=== PATIENT | female | born 1980 | race Caucasian/White ===

== ENCOUNTER 2017-12-21 07:25 | Inpatient (IN) | payer OTHER ==
[2017-12-21 07:41] VITALS: BMI 26.6
[2017-12-21] MEDS ORDERED: Morphine 4 mg/ml ISec IVP STA (07:55)
[2017-12-21] MEDS ORDERED: Sodium Chloride 0.9% 1,000 ML IV STA (07:55)
--- NOTE | 2017-12-21 08:12 | ED PDOC ---
Arrival/HPI - General Chief Complaint: Chest Pain Time Seen by Provider: 12/21/17 07:44 Historian: Patient - History of Present Illness Narrative History of Present Illness (Text): 12/21/17 07:44 Janki Wynne is a 37 year old female, whose past medical history includes tonsillectomy and , who presents to the emergency department complaining of chest pain that began last night and worsened this morning. Patient states that she got lightheaded on the way to work. Patient denies any fever, chills, shortness of breath, nausea, vomiting, diarrhea, urinary symptoms , back pain, neck pain, headache, dizziness, or any other complaints. Time/Duration: 4-6 hours Symptom Onset: Gradual Symptom Course: Unchanged Activities at Onset: Light Context: Home Past Medical History - Provider Review Nursing Documentation Reviewed: Yes - Psychiatric Hx Substance Use: No - Surgical History Hx Section: Yes Hx Tonsillectomy: Yes - Anesthesia Hx Anesthesia: Yes Hx Anesthesia Reactions: No Hx Malignant Hyperthermia: No Family/Social History - Physician Review Nursing Documentation Reviewed: Yes Family/Social History: No Known Family HX Smoking Status: n Hx Alcohol Use: No Hx Substance Use: No Allergies/Home Meds Allergies/Adverse Reactions: Allergies No Known Allergies Allergy (Verified 12/21/17 07:40) Home Medications: Home Meds Medication Instructions Recorded Confirmed No Known Home Med 12/21/17 12/21/17 Review of Systems - Physician Review All systems were reviewed & negative as marked: Yes - Review of Systems Constitutional: absent: Fevers, Night Sweats Eyes: absent: Vision Changes ENT: absent: Hearing Changes Respiratory: absent: SOB, Cough Cardiovascular: Chest Pain Gastrointestinal: absent: Abdominal Pain Genitourinary Female: absent: Dysuria, Frequency Musculoskeletal: absent: Arthralgias Skin: absent: Rash, Pruritis Neurological: absent: Headache, Dizziness Physical Exam Vital Signs Reviewed: Yes Vital Signs Temp Pulse Pulse Resp BP Pulse Ox 12/21/17 09:26 80 18 112/69 98 12/21/17 07:49 70 12/21/17 07:46 97.9 F 86 17 129/87 99 Temperature: Afebrile Blood Pressure: Normal Pulse: Regular Respiratory Rate: Normal Appearance: Positive for: Other (hyperventilating) Pain Distress: None Mental Status: Positive for: Alert and Oriented X 3 - Systems Exam Head: Present: Atraumatic, Normocephalic Pupils: Present: PERRL Extroacular Muscles: Present: EOMI Conjunctiva: Present: Normal Mouth: Present: Moist Mucous Membranes Neck: Present: Normal Range of Motion Respiratory/Chest: Present: Clear to Auscultation, Good Air Exchange, Other ( conversation dyspnea). No: Respiratory Distress, Accessory Muscle Use Cardiovascular: Present: Regular Rate and Rhythm, Normal S1, S2. No: Murmurs Abdomen: No: Tenderness, Distention, Peritoneal Signs Back: Present: Normal Inspection Upper Extremity: Present: Normal Inspection. No: Cyanosis, Edema Lower Extremity: Present: Normal Inspection. No: Edema Neurological: Present: GCS=15, CN II-XII Intact, Speech Normal Skin: Present: Warm, Dry, Normal Color. No: Rashes Psychiatric: Present: Alert, Oriented x 3, Normal Insight, Normal Concentration Medical Decision Making ED Course and Treatment: 12/21/17 08:14 Impression: 37 year old female complaining of chest pain since last night that worsened this morning. Plan: -- Chest X-ray -- Labs -- Morphine, Zofran, and IV fluids -- Reassess and disposition Progress Notes: EKG: Ordered, reviewed, and independently interpreted the EKG. Rate : 92 BPM Rhythm : NSR Interpretation : No ST-segment elevations or depressions, no T-wave inversions, normal intervals. Comparison : No previous EKG for comparison. 12/21/17 11:46 Reviewed radiology, Chest X-ray is normal. Chest CT unremarkable CT pulmonary angiogram. No PE. 12/21/17 12:15 Patient family asks to see me for a third time to answer questions about admission. All tests are negative but still has chest pain which patient wants me to see when she moves a certain way. Patient asks why she cant see a regional coordinator after using "[facility]." - Lab Interpretations Lab Results: 12/21/17 08:00 12/21/17 08:00 Lab Results 12/21/17 08:00: Sodium 142, Potassium 3.9, Chloride 107, Carbon Dioxide 22, Anion Gap 17, BUN 16, Creatinine 0.6 L, Est GFR ( Amer) > 60, Est GFR ( Non-Af Amer) > 60, Random Glucose 90, Calcium 8.9, Total Bilirubin 0.2, AST 29, ALT 24, Alkaline Phosphatase 60, Lactate Dehydrogenase 414, Total Creatine Kinase 77, Troponin I < 0.01, Total Protein 7.5, Albumin 4.4, Globulin 3.2, Albumin/Globulin Ratio 1.4 12/21/17 08:00: WBC 7.6, RBC 3.98, Hgb 10.3 L, Hct 32.3 L, MCV 81.2, MCH 25.9, MCHC 31.9, RDW 14.6 H, Plt Count 301, MPV 10.1, Gran % 47.8 L, Lymph % (Auto) 44.2 H, Vernon % (Auto) 4.5, Eos % (Auto) 3.0, Baso % (Auto) 0.5, Gran # 3.60, Lymph # (Auto) 3.3, Vernon # (Auto) 0.3, Eos # (Auto) 0.2, Baso # (Auto) 0.04 12/21/17 07:55: PT 13.0 H, INR 1.13 H, D-Dimer, Quantitative 224 I have reviewed the lab results: Yes - RAD Interpretation Radiology Orders: 12/21/17 07:55 CHEST PORTABLE [RAD] Stat 12/21/17 09:56 ANGIO CHEST PE PROTOCOL [CT] Stat - Medication Orders Current Medication Orders: Acetaminophen (Tylenol 325mg Tab) 650 mg PO Q6 PRN PRN Reason: TEMP>=99.5F Acetaminophen (Tylenol 650 Mg Supp) 650 mg RC Q6H PRN PRN Reason: TEMP>=99.5F Acetaminophen (Tylenol 650 Mg Supp) 650 mg RC Q6H PRN PRN Reason: Headache Acetaminophen (Tylenol 325mg Tab) 650 mg PO Q6 PRN PRN Reason: Headache Aspirin (Ecotrin) 81 mg PO DAILY [facility] Atorvastatin Calcium (Lipitor) 40 mg PO DIN [facility] Heparin Sodium (Porcine) (Heparin) 5,000 units SC Q8 AURELIO PRN Reason: Protocol Ondansetron HCl (Zofran Inj) 4 mg IVP Q4H PRN PRN Reason: Nausea/Vomiting Pantoprazole Sodium (Protonix Ec Tab) 40 mg PO 0600 AURELIO Discontinued Medications Sodium Chloride (Sodium Chloride 0.9%) 1,000 mls @ 999 mls/hr IV .Q1H1M STA Stop: 12/21/17 08:55 Last Admin: 12/21/17 08:34 Dose: 999 mls/hr eMAR Start Stop Document 12/21/17 08:34 [facility] (Rec: 12/21/17 08:35 [facility] [id number]) Intravenous Solution Start Date 12/21/17 Start Time 08:35 End Date 12/21/17 End time 09:35 Total Infusion Time 60 Ketorolac Tromethamine (Toradol) 30 mg IVP STAT STA Stop: 12/21/17 10:13 Last Admin: 12/21/17 10:19 Dose: 30 mg MAR Pain Assessment Document 12/21/17 10:19 [facility] (Rec: 12/21/17 10:20 [facility] [id number]) Pain Reassessment Is this a pain reassessment? Yes IVP Administration Document 12/21/17 10:19 [facility] (Rec: 12/21/17 10:20 [facility] [id number]) Charges for Administration # of IVP Administrations 1 Morphine Sulfate (Morphine) 4 mg IVP STAT STA Stop: 12/21/17 07:56 Last Admin: 12/21/17 08:35 Dose: Not Given Non-Admin Reason: Patient Refused Ondansetron HCl (Zofran Inj) 4 mg IVP STAT STA Stop: 12/21/17 07:56 Last Admin: 12/21/17 08:35 Dose: Not Given Non-Admin Reason: Patient Refused - Scribe Statement The provider has reviewed the documentation as recorded by the [address] Provider Scribe Attestation: All medical record entries made by the Scribe were at my direction and personally dictated by me. I have reviewed the chart and agree that the record accurately reflects my personal performance of the history, physical exam, medical decision making, and the department course for this patient. I have also personally directed, reviewed, and agree with the discharge instructions and disposition. Disposition/Present on Arrival - Present on Arrival Any Indicators Present on Arrival: No History of DVT/PE: No History of Uncontrolled Diabetes: No Urinary Catheter: No History of Decub. Ulcer: No History Surgical Site Infection Following: None - Disposition Have Diagnosis and Disposition been Completed?: Yes Diagnosis: Atypical chest pain Disposition: HOSPITALIZED Disposition Time: 12:25 Patient Plan: Admission, Discharge, Telemetry Patient Problems: Current Active Problems Problem Status Onset Atypical chest pain Acute Condition: GOOD Discharge Instructions (ExitCare): Chest Pain (ED) Forms: [facility] (Greek)
[2017-12-21 08:24] LABS: BASO # 0.04 K/mm3 (0.0-2.0); BASO % 0.5 % (0.0-3.0); EOS # 0.2 (0.0-0.7); GRAN # 3.6 (1.4-6.5); GRAN % 47.8 % (50.0-68.0); HEMOGLOBIN 10.3 g/dL (12.0-16.0); LYMPH # 3.3 (1.2-3.4); LYMPH % 44.2 % (22.0-35.0); MEAN CELL VOLUME 81.2 fl (80.0-105.0); MEAN CORPUSCULAR HEMOGLOBIN 25.9 pg (25.0-35.0); MEAN CORPUSCULAR HGB CONC 31.9 g/dl (31.0-37.0); MEAN PLATELET VOLUME 10.1 fl (7.0-11.0); MONO # 0.3 (0.1-0.6); MONO % 4.5 % (1.0-6.0); RBC 3.98 10^6/uL (3.5-6.1); RED CELL DISTRIBUTION WIDTH 14.6 % (11.5-14.5); WHITE BLOOD COUNT 7.6 10^3/ul (4.5-11.0)
[2017-12-21 08:27] LABS: ALB/GLOB RATIO 1.4 (1.1-1.8); ALBUMIN 4.4 g/dL (3.0-4.8); ALT/SGPT 24 U/L (7-56); AST/SGOT 29 U/L (14-36); BLOOD UREA NITROGEN 16 mg/dL (7-21); CALCIUM 8.9 mg/dL (8.4-10.5); GFR AFRICAN-AMERICAN > 60; GFR NON-AFRICAN AMERICAN > 60
[2017-12-21 08:38] LABS: TROPONIN I < 0.01 ng/mL
[2017-12-21 09:02] LABS: INR 1.13 (0.93-1.08)
--- NOTE | 2017-12-21 09:28 | RAD ---
HISTORY: chest pain COMPARISON: No prior. FINDINGS: LUNGS: No active pulmonary disease. PLEURA: No significant pleural effusion identified, no pneumothorax apparent. CARDIOVASCULAR: Normal. OSSEOUS STRUCTURES: No significant abnormalities. VISUALIZED UPPER ABDOMEN: Normal. OTHER FINDINGS: None. IMPRESSION: No active disease.
[2017-12-21] MEDS ORDERED: Iohexol 350 MG/100 ML VIAL ONE (10:05)
--- NOTE | 2017-12-21 11:22 | CT ---
PROCEDURE: CT Chest with contrast (Pulmonary Angiogram) HISTORY: Possible PE COMPARISON: None available. TECHNIQUE: Axial computed tomography images were obtained of the chest in the pulmonary arterial phase of enhancement. Coronal and sagittal reformatted images were created and reviewed. Intravenous contrast dose: Radiation dose: Total exam DLP = mGy-cm. This CT exam was performed using one or more of the following dose reduction techniques: Automated exposure control, adjustment of the mA and/or kV according to patient size, and/or use of iterative reconstruction technique. FINDINGS: PULMONARY ARTERIES: Unremarkable. No pulmonary embolism. AORTA: No acute findings. No thoracic aortic aneurysm. LUNGS: Unremarkable. No nodule, mass or pulmonary consolidation. PLEURAL SPACES: Unremarkable. No effusion or pneuomothorax. HEART: Unremarkable. No cardiomegaly. No significant pericardial effusion. LYMPH NODES: No lymphadenopathy. BONES, CHEST WALL: Unremarkable. No fracture or destructive lesion OTHER FINDINGS: Unremarkable. IMPRESSION: Unremarkable CT pulmonary angiogram. No pulmonary embolus.
[2017-12-21 12:41] LABS: HDL CHOLESTEROL 47 mg/dL (29-60)
[2017-12-21 12:52] LABS: LDL CHOLESTEROL 100 mg/dL (0-129)
[2017-12-21 12:57] LABS: FREE T4 0.93 ng/dL (0.78-2.19); T4 7.1 ug/dL (5.5-11.0)
[2017-12-21] MEDS ORDERED: Pantoprazole 40 mg EC Tab PO STA (14:05)
--- NOTE | 2017-12-21 14:41 | CP.PCM.HP ---
<Sergio Higgins - Last Filed: 12/21/17 14:45> History of Present Illness - History of Present Illness History of Present Illness: H&P Note for Dr. Antonio's service - Nelson Higgins PGY2 cc: chest pain HPI: Patient is a 37yo female with no significant past medical history that presents c/o substernal chest pain that started yesterday night. She reports that the pain had woken her from her sleep however she attributed it to musculoskeletal pain and returned to bed. In the morning, she continued to experience this chest pain which she described as pressure-like in sensation, 8/ 10 in severity and non-radiating. She reported that prior to this she was in her usual state of health and never experienced anything like this in the past. 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 She denied palpitations, SOB, abdominal pain, nausea, vomiting, fever, chills, cough, focal weakness. 12point ROS as per HPI above PMH: as stated above PSH: , tonsillectomy Allergies: NKDA Medications: Vitamin B6 Social Hx: denies tobacco, social alcohol use, denies illicit drug use; employed full-time Family Hx: Father: HTN, Mother: cardiac murmur Present on Admission - Present on Admission Any Indicators Present on Admission: No Past Patient History - Past Social History Smoking Status: n - PSYCHIATRIC Hx Substance Use: No - SURGICAL HISTORY Hx Section: Yes Hx Tonsillectomy: Yes - ANESTHESIA Hx Anesthesia: Yes Hx Anesthesia Reactions: No Hx Malignant Hyperthermia: No Meds Allergies/Adverse Reactions: Allergies Allergy/AdvReac Type Severity Reaction Status Date / Time No Known Allergies Allergy Verified 12/21/17 07:40 Physical Exam - Constitutional Appears: No Acute Distress - Head Exam Head Exam: ATRAUMATIC, NORMAL INSPECTION, NORMOCEPHALIC - Eye Exam Eye Exam: EOMI, PERRL - ENT Exam ENT Exam: Mucous Membranes Moist - Neck Exam Neck exam: Positive for: Normal Inspection - Respiratory Exam Respiratory Exam: Clear to Auscultation Bilateral. absent: Rales, Rhonchi, Wheezes - Cardiovascular Exam Cardiovascular Exam: RRR, +S1, +S2. absent: Gallop, Rubs - GI/Abdominal Exam GI & Abdominal Exam: Normal Bowel Sounds, Soft. absent: Distended, Firm, Guarding, Rebound, Tenderness - Neurological Exam Neurological exam: Alert, CN II-XII Intact, Oriented x3 - Psychiatric Exam Psychiatric exam: Normal Affect, Normal Mood - Skin Skin Exam: Dry, Intact, Normal Color, Warm Results - Vital Signs Recent Vital Signs: Last Vital Signs Temp 97.9 F 12/21/17 07:46 Pulse 72 12/21/17 11:00 Resp 18 12/21/17 11:00 BP 108/59 L 12/21/17 11:00 Pulse Ox 99 12/21/17 11:00 - Labs Result Diagrams: 12/21/17 08:00 12/21/17 08:00 Labs: Laboratory Results - last 24 hr 12/21/17 13:00 Troponin I < 0.01 Assessment & Plan - Assessment and Plan (Free Text) Plan: 37yo female with no significant past medical history presents c/o chest pain associated with numbness of bilateral lower extremities 1. Chest pain r/o ACS -EKG revealed normal sinus rhythm with no acute ST-T wave changes -Troponin negative x2 -CTA negative for PE -CXR revealed no active disease -Echocardiogram pending -TSH within normal limits -A1C pending -LDL 100 -Continue ASA, lipitor -Telemetry monitoring -Heart healthy diet -Cardiology evaluation - Dr. May 2. GI/DVT prophylaxis -Protonix/SCD's Patient seen and case discussed with attending, Dr. Antonio <Rajat Antonio U - Last Filed: 12/21/17 21:08> Results - Vital Signs Recent Vital Signs: Last Vital Signs Temp 98.2 F 12/21/17 16:00 Pulse 78 12/21/17 16:18 Resp 12 12/21/17 16:18 BP 121/79 12/21/17 16:18 Pulse Ox 98 12/21/17 16:00 - Labs Result Diagrams: 12/21/17 08:00 12/21/17 08:00 Labs: Laboratory Results - last 24 hr 12/21/17 12/21/17 13:00 17:15 Troponin I < 0.01 < 0.01 Assessment & Plan - Assessment and Plan (Free Text) Plan: ASSESMENT & PLAN: CHEST PAIN ANEMIA ETIOLOGY UNDETERMINED ELEVATED ESR. HYPERLIPIDEMIA ADMIT TELEMETRY CARDIOLOGY CONSULT SERIAL EKG SERIAL CE ECHO DOPPLER UDS DISCHARGE NOTE: PATIENT SIGNED OUT AMA ALL AMA PAPER WORK COMPLETED AND SIGNED AND WITNESSED BY HEAVY EQUIPMENT SERVICE MANAGER AND NURSE.
[2017-12-21 15:03] VITALS: BP 121/79; PULSE 78; O2SAT 98
[2017-12-21 16:31] VITALS: RESP 12
[2017-12-21 16:47] VITALS: TEMP 98.2
--- NOTE | 2017-12-21 18:25 | CARD ---
APPROVED REPORT EKG Measurement Heart [id number] <Conclusion> Normal sinus rhythm Normal ECG
--- NOTE | 2017-12-22 01:24 | CON ---
DATE: 12/21/2017 CARDIOLOGY CONSULTATION HISTORY OF PRESENT ILLNESS: The patient is a 37-year-old woman who was driving to work this morning and developed sudden onset of epigastric discomfort as well as weakness. PAST MEDICAL HISTORY: The patient's past medical history is free of cardiac disease in the past. She has no cardiac risk factors. No diabetes mellitus. No hypertension. No family history of CAD. MEDICATIONS: The patient is on no medications other than B12 vitamins. Does not take control pills. SOCIAL HISTORY: The patient does not smoke. REVIEW OF SYSTEMS: Fourteen-point review of systems was reviewed in detail, no cardiac symptoms were noted. PHYSICAL EXAMINATION: VITAL SIGNS: Stable. NECK: Negative JVD. LUNGS: Without rales. HEART: Reveals S1 and S2. EXTREMITIES: Without edema. EKG is within normal limits. The first troponin is negative. IMPRESSION: 1. Atypical chest symptoms. 2. No evidence for acute coronary syndrome. 3. Need to rule out hypoglycemia versus peptic ulcer disease. PLAN: Given these findings, the patient has been admitted for serial troponins. We will give her a trial of Protonix. Marin May MD
[2017-12-22] MEDS ORDERED: Pantoprazole 40 mg EC Tab PO SCH (06:00)
== END 2017-12-21 18:10 | disposition left against medical advice (07) | DRG 313 ==
LOC: ED 07:25 → ERH 12:27 → 2RNO 16:10
PROVIDERS: ADMIT Internal Medicine; ATTEND Internal Medicine
DX: R07.89 Other chest pain (principal); R53.1 Weakness; R42 Dizziness and giddiness; Z82.49 Family history of ischemic heart disease and other diseases of the circulatory system